=== PATIENT | male | born 1995 | race Caucasian/White ===

== ENCOUNTER 2016-12-06 17:27 | Emergency (ER) | payer BC ==
[~2016-12-06] VITALS: Ht 182.9 cm; Wt 77.3 kg
[2016-12-06 17:29] VITALS: BP 143/70; TEMP 98
[2016-12-06] MEDS ORDERED: VYVANSE40 MG PO (17:32)
[2016-12-06] MEDS ORDERED: AMOXICILLIN/CLA1 TA1 PO (18:10)
[2016-12-06 18:51] VITALS: PULSE 84
== END 2016-12-06 18:49 | disposition home or self-care (01) ==
LOC: COL.ER 17:27
DX: S01.81XA Laceration without foreign body of other part of head, initial encounter (principal); V00.121A Fall from non-in-line roller-skates, initial encounter; Y92.331 Roller skating rink as the place of occurrence of the external cause